=== PATIENT | male | born 1960 | race African-American/Black ===

== ENCOUNTER 2016-09-11 09:30 | Emergency (ER) | payer BC ==
[~2016-09-11 09:30] MED LIST: CIPRO PO; CLEOCIN HCL300 M1 PO; CLINDAMYCIN HC300 MG PO; FLOMAX0.4 M1 DOB; IBUPROFEN800 MG PO; LEVAQUIN PO; TRAMADOL HCL50 M2 PO
[2016-09-11 10:34] LABS: URINE SOURCE CLEAN CATCH
[2016-09-11 10:41] LABS: URINE APPEARANCE CLEAR; URINE BILIRUBIN NEG (NEG); URINE BLOOD NEG (NEG); URINE COLOR YELLOW; URINE GLUCOSE NEG (NEG); URINE KETONE NEG (NEG); URINE LEUKOCYTE ESTERASE NEG (NEG); URINE NITRATE NEG (NEG); URINE PROTEIN 1+ (NEG); URINE SPECIFIC GRAVITY 1.022 (1.003-1.035); URINE UROBILINOGEN 0.2 MG/DL (NEG)
[2016-09-11 10:44] LABS: URBCS1 AUWI 0-2 /[HPF] (0-2); URINE BACTERIA AUWI NEG (NEGATIVE); URINE SQUAMOUS EPITHELIAL CELL NONE SEEN /[HPF]; UWBCS1 AUWI 0-2 (0-5)
[2016-09-11 10:48] LABS: CULTURE INDICATED? NO
== END 2016-09-11 12:22 | disposition home or self-care (01) ==
LOC: CED 09:30
PROVIDERS: Emergency Medicine
DX: R30.0 Dysuria (principal); Z88.0 Allergy status to penicillin
CPT/HCPCS: 81003; 87086; 99283